=== PATIENT | male | born 1990 | race Caucasian/White ===

== ENCOUNTER 2018-12-04 14:14 | Emergency (ER) | payer OTHER ==
[~2018-12-04] VITALS: Ht 160 cm; Wt 55.8 kg
[2018-12-04 14:29] VITALS: Ht 160 cm; Wt 55.8 kg
[2018-12-04 16:38] VITALS: BP 130/71
== END 2018-12-04 16:38 | disposition home or self-care (01) ==
LOC: ED 14:14 → EDBD 14:14 → ED 16:38
DX: S29.012A Strain of muscle and tendon of back wall of thorax, initial encounter (principal); S39.012A Strain of muscle, fascia and tendon of lower back, initial encounter; X50.9XXA Other and unspecified overexertion or strenuous movements or postures, initial encounter; Y93.89 Activity, other specified; Y92.89 Other specified places as the place of occurrence of the external cause; Y99.8 Other external cause status